=== PATIENT | female | born 1970 | race Caucasian/White ===

== ENCOUNTER 2022-03-29 09:28 | Outpatient (CLI) | payer OTHER, SELFPAY ==
--- NOTE | ~2022-03-29 | XR_ITS ---
EXAMINATION: XR abdomen/kub 1V DATE: 03/29/2022 09:47 INDICATION: Calculus of kidney. Right flank pain. TECHNIQUE: A supine view of the abdomen on 2 radiographs was obtained. COMPARISON: Abdomen radiographs 11/18/2005, CT abdomen and pelvis 10/14/2005 FINDINGS: There are no dilated loops of bowel. There is a 9 x 5 mm stone in right kidney. The kidneys are obscured by bowel. Again seen are phleboliths in the pelvis. Surgical clips in the right upper q uadrant are likely from cholecystectomy. IMPRESSION: 1. Right kidney stone. Reviewed, dictated and finalized at location A. 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 Right kidney stone.
== END 2022-03-29 09:29 | disposition home or self-care (01) ==
LOC: ANHIMG 09:33
PROVIDERS: PCP Student in an Organized Health Care Education/Training Program; Visit Provider Internal Medicine Nephrology
DX: N20.0 Calculus of kidney (principal); R94.4 Abnormal results of kidney function studies
CPT/HCPCS: 74018

== ENCOUNTER → 2022-06-04 11:03 | Outpatient (CLI) | payer OTHER, SELFPAY ==
--- NOTE | ~2022-06-04 | XR_ITS ---
Supine and upright views of the abdomen Clinical history: Renal stone Findings: Bowel gas pattern is nonspecific. No evidence for obstruction or free air. No abnormal mass lesion or calcification is seen. Cholecystectomy clips noted. Osseous structures are intact. Impression: No definite stone seen radiographically. 7 mm right renal stone seen on CT performed concurrently is not clearly visible on this exam. Reviewed, dictated and finalized at [facility]. Impression: No definite stone seen radiographically. 7 mm right renal stone seen on CT perf ormed concurrently is not clearly visible on this exam.
--- NOTE | ~2022-06-04 | CT_ITS ---
Non-contrast CT scan of the Abdomen and Pelvis Clinical indication: Kidney stone Technique: 2.5 mm axial scans were obtained through the abdomen and pelvis without intravenous or or al contrast. Dose reduction technique was used on this scan by utilizing automated exposure control a nd iterative reconstruction technique. The dose-length product (DLP) was 905.39 mGy-cm. COMPARISON: 11/18/2005 Findings: Images through the lung bases reveal no abnormalities. 7 mm nonobstructing right renal stone present. No ureteral stone or hydronephrosis on either side. No left renal stone identified. Probable diffuse fatty infiltration of liver. The spleen, pancreas, and adrenals appear normal. Vaishnavi cystectomy clips are present. There is no aortic aneurysm. There is no evidence of bowel obstruction. Images through the pelvis were performed. There is no evidence of ascites or lymphadenopathy. Urinary bladder unremarkable. No pelvic mass seen. Impression: 7 mm nonobstructing right renal stone. Diffuse fatty infiltration of liver. Reviewed, dictated and finalized at [facility]. Impression: 7 mm nonobstructing right renal stone. Diffuse fatty infiltration of liver.
== END ==
PROVIDERS: PCP Student in an Organized Health Care Education/Training Program; Visit Provider Urology
DX: N20.0 Calculus of kidney (principal); K76.0 Fatty (change of) liver, not elsewhere classified
CPT/HCPCS: 74018; 74176

== ENCOUNTER 2022-06-11 08:28 | Outpatient (CLI) | payer OTHER, SELFPAY ==
--- NOTE | ~2022-06-11 | XR_ITS ---
EXAMINATION: XR abdomen/kub 1V DATE: 06/11/2022 08:58 INDICATION: Calcium kidney stone. TECHNIQUE: A supine view of the abdomen on 2 radiographs was obtained. COMPARISON: CT abdomen and pelvis 06/04/2022 FINDINGS: There is a 7 mm stone in right kidney. There are no dilated loops of bowel. Surgical clips in the right upper quadrant are likely from cholecystectomy. There are phleboliths in the pelvis. IMPRESSION: 1. 7 mm stone in right kidney. Reviewed, dictated and finalized at location A.
== END 2022-06-11 08:29 | disposition home or self-care (01) ==
PROVIDERS: PCP Student in an Organized Health Care Education/Training Program; Visit Provider Urology
DX: N20.0 Calculus of kidney (principal)
CPT/HCPCS: 74018

== ENCOUNTER 2022-06-21 14:50 | Outpatient (CLI) | payer OTHER, SELFPAY ==
--- NOTE | 2022-06-21 15:01 | ECG_ITS ---
Measurements Intervals [place] Rate: 70 P: 56 NE: 175 QRS: 9 QRSD: 80 T: 29 QT: 379 QTc: 410 Interpretive Statements SINUS RHYTHM WITHIN NORMAL LIMITS NO PREVIOUS ECG AVAILABLE FOR COMPARISON Electronically Signed On 06-22-2022 6:59:46 CDT by Héctor Gomes M.D.
[2022-06-21 16:01] LABS: Anion Gap 8 mmol/L (8-16); Blood Urea Nitrogen 17 mg/dL (7-17); Calcium 8.8 mg/dL (8.4-10.2); Carbon Dioxide 32 mmol/L (22-30); Chloride 98 mmol/L (98-107); Estimated Glomerular Filt Rate 58; Glucose 102 mg/dL (65-110); Potassium 3.6 mmol/L (3.4-5.0); Sodium 138 mmol/L (137-145)
[2022-06-21 16:03] LABS: INR 1.1; Prothrombin Time 13.4 Seconds (11.1-14.7)
== END 2022-06-21 14:51 | disposition home or self-care (01) ==
PROVIDERS: Anesthesiology; PCP Student in an Organized Health Care Education/Training Program; Visit Provider Urology
DX: Z01.818 Encounter for other preprocedural examination (principal); I10 Essential (primary) hypertension; Z79.899 Other long term (current) drug therapy; N20.0 Calculus of kidney
CPT/HCPCS: 36415; 80048; 85610; 85730; 87086; 93005

== ENCOUNTER 2022-06-25 00:40 | Day surgery (SDC) | payer OTHER, SELFPAY ==
[2022-06-21 09:51] VITALS: BMI 37.1
--- NOTE | 2022-06-21 09:55 | PC.NURSE ---
Report to the Outpatient Waiting Room, entrance under the green pavilion located off [facility], at time 6:30 on date 06/25/22. Planned Procedure Time: 8:30. Time changes happen often and if your time is changed the preop area will call you the afternoon before. - You and your visitor will be asked to self-screen and do not enter if you have any COVID symptoms. - A mask is optional within the hospital at this time. Patients may have clear liquids (water, carbonated beverages, clear teas, apple juice) until 3 hours prior to surgery (5:30) with a maximum of 20 ounces. - No food from midnight until time of surgery Take the following medications with a SIP of water the morning of surgery: METOPROLOL DO NOT STOP ANY OF YOUR OTHER PRESCRIPTION MEDICATIONS PRIOR TO SURGERY?EXCEPT THE FOLLOWING Medications to discontinue per physician: VITAMINS Date to take last dose: 06/21/22 Please no make-up, nail yoruba, hairspray, perfume, deodorant, or body powder the day of surgery. No jewelry (including any body piercings) or valuables the day of surgery, leave them at home. Please take a shower or bath the night before, or the morning of, surgery with an antibacterial soap. Wear comfortable, loose fitting clothing. - Jewelry must be removed prior to entering the operating room. Rings and piercings that are not removed may be cut off. - The hospital will not accept responsibility for valuables. - Please leave all valuables, including medications, at home the day of surgery. If you are going home after surgery, a licensed dump truck driver must drive you home. - NO public transportation without another adult if you receive anesthesia. - We recommend that an adult stay with you for 24 hours following discharge. - We also recommend that you do not drive, make important decision, drink alcoholic beverages, or take any drugs that were not prescribed by your health care provider for at least 24 hours after your discharge time. Follow any additional instructions given to you from your surgeon. If you or anyone in your household have experienced Covid symptoms in the past week, please notify your surgeon or the nurse liaison at the phone number below for possible testing. Telephone instructions given to PT - WILLIAM RODRIGUEZ and asked if any additional questions and then verbalized understanding. Patient advised to call surgeon office or pre surgery nurse liaison [phone] if any additional questions.
[2022-06-25] VITALS (9 sets, daily range): BP systolic 117–142; BP diastolic 65–94; PULSE 64–84; RESP 12–16; TEMP 36.2–36.7; O2SAT 95–100; BMI 37.4
--- NOTE | ~2022-06-25 | XR_ITS ---
XR abdomen/kub 1V 06/25/2022 06:36 Indication: Preop ESWL Procedure: KUB Comparison: 06/11/2022 Findings: There are stones in the lower pole of the right kidney. There are pelvic phleboliths unchan ged. Bowel gas pattern nonobstructive. Lung bases are normal. There are cholecystectomy clips. No acu te osseous abnormality. Impression: 1: Right nephrolithiasis. Reviewed, dictated and finalized at location A. Impression: 1: Right nephrolithiasis.
--- NOTE | 2022-06-25 07:10 | P.PNAN_ITS ---
Anes - Initial Pre Proc Eval Procedure: Operation Date: 06/25/22 08:30 Proposed Procedures p Right Renal Extracorporeal Shock Wave Lithotripsy - Anthony Thao MD Date/Time: 06/25/22 07:10 Surgeon: Anthony Thao MD Pre Op Diagnosis: Right Renal Stone Patient Data Age: 51 Gender: F Height: 1.68 m Weight: 104.35 kg Allergies Allergy/AdvReac Type Severity Reaction Status Date / Time No Known Allergies Allergy Unverified 06/21/22 09:50 Home Medications Medication Instructions Recorded Confirmed Type metoprolol succinate 25 mg 25 mg PO DAILY 03/29/22 06/21/22 History tablet,extended release 24 hr hydrochlorothiazide 25 mg tablet 25 mg PO DAILY 05/03/22 06/21/22 History loratadine 10 mg tablet (Claritin) 10 mg PO DAILY 06/21/22 06/21/22 History mecobalamin (vitamin B12) 1,000 1,000 mcg PO DAILY 06/21/22 06/21/22 History mcg chewable tablet (B12 Active) omeprazole 20 mg-sodium 1 cap PO DAILY 06/21/22 06/21/22 History bicarbonate 1.1 gram capsule (Zegerid OTC) Patient hx anesthesia problems: none Family hx anesthesia problems: none Results Review: All pre-operative results and documents have been reviewed as part of the pre- operative evaluation. [facility] Past Medical History Medical History (Updated 06/25/22 @ 07:11 by Pérez Callaway MD) HTN (hypertension) Obesity Surgical History Surgical History H/O arthroscopic knee surgery H/O lithotripsy History of section Social History Social History Smoking status: Never smoker Alcohol intake: never Substance use: never Substance use type: does not use Lack of Transportation: No Lack of Food: Never True Current Housing: I Have Housing Concerned About Future Housing: No Difficulty Paying Gas/Electric Bills: No Difficulty Paying for Meds: No Currently Unemployed: No Education: High School Diploma/GED Living arrangements: with family Gender identity (if verbalized by the patient): Female Spiritual care concerns: No Anes - Eval Final PreProcedure Day of Procedure 06/25/22 07:10 Patient weight: obese Heart: regular rate and rhythm Lungs: clear to auscultation Airway: Mallampati scale class III and special considerations poor opening Neurological: alert and oriented Last oral intake: >/= 8 hours ASA classification: II Emergent: no Anesthetic plan: proceed Anesthesia type and monitoring: general LMA and standard monitoring Results Review: All pre-operative results and documents have been reviewed as part of the pre- operative evaluation. Informed Consent: The patient's anesthetic plan and its attendant risks and benefits were discussed with the patient/family/POA. Questions were solicited and answers provided to the satisfaction of the patient/family/POA.
[2022-06-25] MEDS: LACTATED RINGERS 1,000 ML 30 ML IV CONT (07:20)
--- NOTE | 2022-06-25 07:25 | WPDHPUPDATE1 ---
History and Physical Update Update Date/Time: 06/25/22 07:25 History and Physical has been reviewed, including an updated exam of the patient. There are NO changes in the patient's condition. Risks, benefits, and alternatives have been discussed and questions answered. Patient agrees to proceed with procedure. Proceed with right renal eswl
[2022-06-25] MEDS: ceFAZolin 2 GM/D5W 50 ML 2 GM/50 ML BAG IVPB (08:28)
--- NOTE | 2022-06-25 09:06 | W.PM.PROC2 ---
Procedure Note - Detailed Date of Procedure 06/25/22 Pre-op Diagnosis Right Renal Stone Post-op Diagnosis Same Procedure Performed Lithotripsy of right renal calculus Surgeon Anthony Thao MD Anesthesia General Description of Procedure Patient is taken to the operative suite correctly identified. Once anesthesia was obtained the stone was localized in both planes. Two thousand five hundred shocks given the stone. Patient tolerated procedure well I complications and was taken recovery stable condition. She will follow-up in 7-10 days with KUB. Please send a copy of op note to my office Estimated Blood Loss 0 Drains No Packing No Pathology None sent Complications No immediate complications Condition Stable Disposition PACU
[2022-06-25] MEDS: oxyCODONE HCL (*CRX) 5 MG TAB IR PO (10:18)
[2022-06-25] MEDS: fentaNYL CITRATE INJ (*CRX) 100 MCG/2 ML VIAL 25 MCG IV PUSH (10:38)
--- NOTE | 2022-06-25 11:10 | SUR.PHASEII ---
1105 pt was discharged at 1100, i forgot to document a dose of 25mcg fentanyl given at 1035. i had a total waste of 50mcg of fentanyl
== END 2022-06-25 11:00 | disposition home or self-care (01) ==
PROVIDERS: PCP Student in an Organized Health Care Education/Training Program; Visit Provider Urology
PROC: (CPT 50590; principal; 2022-06-25 08:30)
DX: N20.0 Calculus of kidney (principal); I10 Essential (primary) hypertension; E66.9 Obesity, unspecified; Z68.37 Body mass index [BMI] 37.0-37.9, adult
CPT/HCPCS: 50590; 36415; 74018; 80048; 85610; 85730; 87086; 93005; A9270; J0690; J1100; J2250; J2405; J2704; J3010; J7120

== ENCOUNTER 2022-07-15 09:01 | Outpatient (CLI) | payer OTHER, SELFPAY ==
--- NOTE | ~2022-07-15 | XR_ITS ---
Supine and upright views of the abdomen Clinical history: Renal stone COMPARISON: 06/25/2022 Findings: Bowel gas pattern is nonspecific. No evidence for obstruction or free air. No abnormal mass lesion or calcification is seen. Osseous structures are intact. Impression: No significant abnormality is seen. Reviewed, dictated and finalized at [facility] [place]. Impression: No significant abnormality is seen.
== END 2022-07-15 09:02 | disposition home or self-care (01) ==
PROVIDERS: PCP Student in an Organized Health Care Education/Training Program; Visit Provider Urology
DX: N20.0 Calculus of kidney (principal)
CPT/HCPCS: 74018